=== PATIENT | female | born 1975 | race Caucasian/White ===

== ENCOUNTER 2023-09-01 12:53 | Emergency (ER) | payer MEDICAID ==
[~2023-09-01] VITALS: Ht 170.2 cm; Wt 70.0 kg
[2023-09-01 13:13] VITALS: TEMP 98.5; O2SAT 98
[2023-09-01] MEDS ORDERED: HYDROCODONE/ACETAMINOPHEN 10/325MG TABLET PO ONE (13:45)
[2023-09-01 16:15] VITALS: BP 127/67; PULSE 65; RESP 16
[2023-09-01] MEDS ORDERED: HYDROCODONE/ACETAMINOPHEN 10/325MG TABLET PO NR (16:15)
[2023-09-01] MEDS ORDERED: TOPUD MT (18:56)
[2023-09-01] MEDS ORDERED: IBUP-1523 MT (18:56)
[2023-09-01] MEDS ORDERED: TRAM50TA3 MT (18:56)
[2023-09-01] MEDS ORDERED: LIDOCAINE HCL 1% 20ML VIAL (Pyxis) INJ INFIL ONE (20:00)
== END 2023-09-01 20:59 | disposition home or self-care (01) ==
LOC: ER 12:53
DX: S61.011A Laceration without foreign body of right thumb without damage to nail, initial encounter (principal); E11.9 Type 2 diabetes mellitus without complications; W18.30XA Fall on same level, unspecified, initial encounter; Y93.89 Activity, other specified; Y92.89 Other specified places as the place of occurrence of the external cause; Y99.8 Other external cause status
CPT/HCPCS: 81025; 71045; 72040; 73090; 73130; 12002; 99284; J3490; Z7610 ×5